=== PATIENT | male | born 1950 | race Caucasian/White ===

== ENCOUNTER 2016-06-22 21:48 | Observation (INO) ==
[2016-06-22] MEDS ORDERED: 0.9 % Sodium Chloride 500 ML IVC ONE (23:52)
[2016-06-22] MEDS ORDERED: Ipratropium/Albuterol Neb 3 ML IH ONE (23:52)
[2016-06-23 00:45] LABS: Basophils # 0.1 K/mcL (0.0-0.2); Basophils % 0.6 %; Eosinophils # 0.2 K/mcL (0.0-0.6); Eosinophils % 2.5 %; Hematocrit 38.2 % (37.5-50.1); Hemoglobin 12.9 g/dL (12.9-16.9); Immature Granulocytes % 0.5 % (0-4); Immature Platelets 6.1 % (1.1-6.1); Lymphocytes # 2.3 K/mcL (0.6-4.6); Lymphocytes % 27.3 %; Mean Corpuscular HGB Conc 33.8 g/dL (31.6-35.5); Mean Corpuscular Hemoglobin 32.2 pg (28.0-33.3); Mean Corpuscular Volume 95.3 fL (83.0-100.0); Mean Platelet Volume 10.8 fL (9.4-12.4); Monocytes # 1.2 K/mcL (0.0-1.3); Monocytes % 13.8 %; Neutrophils # 4.7 K/mcL (1.6-8.9); Platelet Count 224 K/mcL (140-400); Red Blood Count 4.01 M/mcL (4.19-5.50); Red Cell Distribution Width 12.4 % (11.5-14.5); Segmented Neutrophils % 55.3 %
[2016-06-23 00:56] LABS: BUN/Creatinine Ratio 13 (6-26); Blood Urea Nitrogen 13 mg/dL (8-26); Calcium 9.4 mg/dL (8.6-10.8); Carbon Dioxide 27 mEq/L (19-29); Chloride 99 mEq/L (98-109); Glucose 170 mg/dL (70-99); Osmolality,Calculated 292 (280-300); Potassium 3.4 mEq/L (3.5-4.5); Sodium 139 mEq/L (136-145); eGFR For African Americans > 60 (> 60); eGFR For Non-African Americans > 60 (> 60)
[2016-06-23 00:57] LABS: INR 1.1; Prothrombin Time 11.5 Seconds (9.4-12.1)
[2016-06-23 01:00] LABS: Activated Partial Thrombo Time 25.7 Seconds (26.0-36.0)
--- NOTE | 2016-06-23 03:18 | Emergency Department Note ---
Disposition Clinical Impression: Dyspnea and respiratory abnormalities, Lactic acidosis Disposition: Admitted As Inpatient Condition: Fair Referrals: Fadi Alexander MD [Primary Care Provider] - Forms: ED Satisfaction Letter URI/Sore Throat HPI - General Chief Complaint: ED Upper Respiratory Infection Stated Complaint: SANDI / Cough Time Seen by Provider: 06/22/16 23:35 Source: patient Mode of arrival: private vehicle Limitations: no limitations Nursing Notes Reviewed: Yes Vital Signs Reviewed: Yes - History of Present Illness Pt Subjective Complaint: fever, cough, flu symptoms, nasal congestion, sinus pain Onset (ago): day(s) (1.5) Duration: constant, gradually worsening Severity: moderate Improves with: nothing Worsens with: exertion, other (coughing) If sputum, description: yellow Associated symptoms: Reports: fever, chills, voice changes, myalgias, nasal congestion, cough, shortness of breath. Denies: diaphoresis, headache, rhinorrhea, stiff neck, chest pain, abdominal pain, nausea, vomiting, diarrhea, dysuria, rash, ear pain Treatments prior to arrival: none - Related Data Home Medications Medication Instructions Recorded Confirmed Acyclovir [Zovirax] 400 mg PO BID PRN 05/30/15 06/29/15 Allopurinol [Zyloprim 100 MG] 100 mg PO DAILY 05/30/15 06/29/15 GlyBURIDE 10 mg PO BID 05/30/15 06/29/15 Indomethacin 50 mg PO BID 05/30/15 06/29/15 Lansoprazole [Prevacid] 30 mg PO BID 05/30/15 06/29/15 Metformin [Glucophage] 1,000 mg PO BID 05/30/15 06/29/15 Potassium Chloride [Klor-Con 10 meq PO BID 05/30/15 06/29/15 Sprinkle] Ramipril 10 mg PO BID 06/29/15 06/29/15 Previous Rx's Medication Instructions Recorded Aspirin 81 mg PO DAILY #30 tab.chew 06/01/15 Atorvastatin [Lipitor] 80 mg PO HS #30 tablet 06/01/15 Clopidogrel [Plavix] 75 mg PO DAILY #30 tablet 06/01/15 Lisinopril [Zestril] 10 mg PO DAILY #30 tablet 06/01/15 Metoprolol [Lopressor] 50 mg PO BID #60 tablet 06/01/15 Nitroglycerin 0.4 mg SL Q5MIN PRN #30 tab.subl 06/01/15 Allergies Allergy/AdvReac Type Severity Reaction Status Date / Time No Known Allergies Allergy Verified 06/22/16 22:09 All systems ED: reviewed and negative except as stated. Constitutional: Reports: fever, chills Eyes: Denies: eye pain, eye discharge, vision change ENT ED: Reports: congestion. Denies: dysphagia Cardiovascular: Reports: dyspnea on exertion. Denies: chest pain, palpitations , orthopnea, edema, syncope Respiratory: Reports: as per HPI, cough, dyspnea, sputum production. Denies: wheezes, hemoptysis, stridor Gastrointestinal: Denies: abdominal pain, nausea, vomiting, diarrhea Musculoskeletal: Denies: back pain, neck pain, joint swelling Integumentary: Denies: rash Neurological: Denies: headache, confusion, vertigo Endocrine: Reports: fatigue Hematological/Lymphatic: Denies: easy bleeding, easy bruising URI PMH - Past Medical History Medical history: Reports: coronary artery disease, diabetes, GERD, hyperlipidemia, hypertension, myocardial infarction Surgical history: Reports: herniorrhaphy, vasectomy Psychiatric history: Reports: no psych history - Social History Smoking Status: Former smoker Alcohol use: Reports: none Drug use: Reports: none Physical Exam - General Limitations: no limitations General appearance: alert, in no apparent distress - Head Head exam: atraumatic, normocephalic, normal inspection - Eye Eye exam: Present: normal appearance, PERRL. Absent: scleral icterus, conjunctival injection, periorbital swelling - ENT ENT exam: normal oropharynx, mucous membranes dry - Neck Neck exam: Present: normal inspection, full ROM, trachea midline. Absent: tenderness, meningismus, lymphadenopathy - Chest Chest inspection: Present: normal inspection, symmetric chest wall rise. Absent : tenderness - Respiratory Respiratory exam: Present: normal lung sounds bilaterally. Absent: respiratory distress, wheezes, stridor, accessory muscle use, prolonged expiratory phase - Cardiovascular Cardiovascular exam: Present: regular rate, normal rhythm, normal heart sounds - Abdominal Exam Abdominal exam: Present: soft, Non-Tender. Absent: tenderness, distention, guarding, rebound, rigidity, mass - Extremities Exam Extremities exam: Present: normal inspection, full ROM, normal capillary refill. Absent: tenderness, pedal edema, joint swelling, calf tenderness - Expanded Lower Extremity Exam Gait: observed and normal - Back Exam Back exam: Present: normal inspection, full ROM. Absent: tenderness - Neurological Exam Neurological exam: Present: alert, oriented X3, CN II-XII intact, normal gait - Psychiatric Psychiatric exam: Present: normal affect, normal mood - Skin Skin exam: Present: warm, dry, intact, normal color Course Vital Signs Temperature 99.2 F 06/22/16 22:05 Pulse Rate 94 06/22/16 22:05 Respiratory Rate 18 06/22/16 22:05 Blood Pressure 159/89 06/22/16 22:05 O2 Sat by Pulse Oximetry 94 L 06/22/16 22:05 Temperature 99.2 F 06/22/16 22:05 Pulse Rate 100 06/23/16 01:36 Respiratory Rate 16 06/23/16 01:36 Blood Pressure 126/74 06/23/16 01:36 O2 Sat by Pulse Oximetry 95 06/23/16 01:36 Oxygen Delivery Oxygen Delivery Room Air Upper Respiratory Infection - Medical Records Medical records reviewed: Yes I reviewed the patient's medical records. - Lab Data Lab results reviewed: Yes I reviewed the patient's lab results. Result diagrams: 06/23/16 00:31 06/23/16 00:31 Lab Results 06/23/16 06/23/16 06/23/16 Range/Units 00:31 00:31 00:31 WBC 8.5 (4.3-11.1) K/mcL RBC 4.01 L (4.19-5.50) M/mcL Hgb 12.9 (12.9-16.9) g/dL Hct 38.2 (37.5-50.1) % MCV 95.3 (83.0-100.0) fL MCH 32.2 (28.0-33.3) pg MCHC 33.8 (31.6-35.5) g/dL RDW 12.4 (11.5-14.5) % Plt Count 224 (140-400) K/mcL MPV 10.8 (9.4-12.4) fL Immature Gran % 0.5 (0-4) % Seg Neutrophils % 55.3 % Lymphocytes % 27.3 % Monocytes % 13.8 % Eosinophils % 2.5 % Basophils % 0.6 % Neutrophils # 4.7 (1.6-8.9) K/mcL Lymphocytes # 2.3 (0.6-4.6) K/mcL Monocytes # 1.2 (0.0-1.3) K/mcL Eosinophils # 0.2 (0.0-0.6) K/mcL Basophils # 0.1 (0.0-0.2) K/mcL Immature Plt Fraction 6.1 (1.1-6.1) % PT 11.5 (9.4-12.1) Seconds INR 1.1 APTT 25.7 L (26.0-36.0) Seconds Sodium 139 (136-145) mEq/L Potassium 3.4 L (3.5-4.5) mEq/L Chloride 99 (98-109) mEq/L Carbon Dioxide 27 (19-29) mEq/L BUN 13 (8-26) mg/dL Creatinine 0.98 (0.72-1.25) mg/dL Est GFR ( Amer) > 60 (> 60) Est GFR (Non-Af Amer) > 60 (> 60) BUN/Creatinine Ratio 13 (6-26) Glucose 170 H (70-99) mg/dL Calculated Osmolality 292 (280-300) Lactic Acid (0.5-2.2) mmol/L Calcium 9.4 (8.6-10.8) mg/dL Troponin I (0-0.03) ng/mL B-Natriuretic Peptide (0-100) pg/mL 06/23/16 06/23/16 06/23/16 Range/Units 00:31 00:31 00:31 WBC (4.3-11.1) K/mcL RBC (4.19-5.50) M/mcL Hgb (12.9-16.9) g/dL Hct (37.5-50.1) % MCV (83.0-100.0) fL MCH (28.0-33.3) pg MCHC (31.6-35.5) g/dL RDW (11.5-14.5) % Plt Count (140-400) K/mcL MPV (9.4-12.4) fL Immature Gran % (0-4) % Seg Neutrophils % % Lymphocytes % % Monocytes % % Eosinophils % % Basophils % % Neutrophils # (1.6-8.9) K/mcL Lymphocytes # (0.6-4.6) K/mcL Monocytes # (0.0-1.3) K/mcL Eosinophils # (0.0-0.6) K/mcL Basophils # (0.0-0.2) K/mcL Immature Plt Fraction (1.1-6.1) % PT (9.4-12.1) Seconds INR APTT (26.0-36.0) Seconds Sodium (136-145) mEq/L Potassium (3.5-4.5) mEq/L Chloride (98-109) mEq/L Carbon Dioxide (19-29) mEq/L BUN (8-26) mg/dL Creatinine (0.72-1.25) mg/dL Est GFR ( Amer) (> 60) Est GFR (Non-Af Amer) (> 60) BUN/Creatinine Ratio (6-26) Glucose (70-99) mg/dL Calculated Osmolality (280-300) Lactic Acid 3.0 H (0.5-2.2) mmol/L Calcium (8.6-10.8) mg/dL Troponin I 0.01 (0-0.03) ng/mL B-Natriuretic Peptide 52 (0-100) pg/mL - Radiology Data Radiology results reviewed: Yes I reviewed the patient's radiology results. - EKG Data EKG attestation: Yes I reviewed and interpreted this EKG. EKG shows normal: sinus rhythm Rate: normal Rhythm: NSR [place]/QRS: normal Interpretation: no acute changes, normal EKG
[2016-06-23] MEDS ORDERED: 0.9 % Sodium Chloride 1,700 ML IVC ONE (03:22)
[2016-06-23] MEDS ORDERED: Azithromycin 500 MG in D5% in Water 250 ML IVPB ONE (03:23)
--- NOTE | 2016-06-23 04:27 | Internal Med History&Physical ---
<JesseAj - Last Filed: 06/23/16 04:58> Date of Encounter: 06/23/16 Time of Encounter: 04:24 Assessment and Plan (1) Acute bronchitis Current visit: Yes Status: Acute Given patient's acute symptoms of fever, productive cough, and wheezing without obvious x-ray findings, he most likely has bronchitis CXR did show old granulomatous findings but no infiltrates visible Will start on PO Levaquin 750 mg daily and support with supplemental oxygen for now as he continues to feel short of breath Obtain UA and urinary strep/legionella antigens Qualifiers: Qualified Code(s): J20.9 - Acute bronchitis, unspecified (2) Lactic acidosis Current visit: Yes Status: Acute Etiology unclear, but cannot rule out type A in setting of possible hypovolemia given his cardiac history; also type B from Metformin use He did present with Lactic acid of 3.0, and received 2 L boluses in the ED; will continue maintenance IVF and recheck lactic acid levels (3) CAD (coronary artery disease) Current visit: Yes Status: Chronic Stable, no current chest pain at this time Will continue ASA, plavix, BB, statin and PRN Nitro Obtain echocardiogram given shortness of breath and no previous echo in the EMR Qualifiers: Qualified Code(s): I25.10 - Atherosclerotic heart disease of [place] coronary artery without angina pectoris (4) HTN (hypertension) Current visit: No Status: Chronic Blood pressures stable since admission Will continue home Lisinopril and Metoprolol Qualifiers: Hypertension type: essential hypertension Qualified Code(s): I10 - Essential (primary) hypertension (5) Non-insulin dependent type 2 diabetes mellitus Current visit: Yes Status: Chronic Presented with glucose of 170 Will stop home Metformin and Glyburide Start on low dose SSI ACHS accuchecks (6) DVT prophylaxis Current visit: Yes Status: Acute Heparin 5000 units BID Internal Medicine - H&P: HPI Chief complaint: Shortness of breath Admitted From: Home Plans for Post Hospital Care: Home History of present illness: Mr. Brar is a 65 year old male who presents to emergency department with shortness of breath has been progressive over the past 2 or 3 days. He states that he was severely short of breath yesterday decided come to the emergency department. Patient claims to get short of breath even at rest and nothing he has tried has improved his symptoms. He also describes having a oroductive cough with brown sputum during this time and also had a fever of 101.4 prior to coming. He believes that he has had some viral infection over the past several days. Of note, he does have a history of STEMI last year and had a drug eluting stent placed in his left circumflex. He is currently on aspirin and Plavix. He does admit to intermittent chest pain occurs once every week or 2, but is relieved by nitroglycerin. He denies any history of lung problems and claims to have had a pulmonary function test roughly a year ago which was negative. He does have an inhaler for bronchitis but rarely uses it, and does not have any oxygen at home. Past Med Surg Social Fam HX - Past Medical History Medical history: coronary artery disease, diabetes, GERD, hyperlipidemia, hypertension, myocardial infarction Psychiatric history: no psych history - Past Surgical History Surgical History: herniorrhaphy, vasectomy - Social History Smoking Status: Former smoker Smokeless Tobacco Status: No Alcohol use: none Drug use: none - Family History Father Family Member Ethnicity: Non- Living Status: Hx Family Cardiac Disorders: Yes Hx Family Respiratory Disorders: No Hx Family Cancer: No Hx Family GI Disorders: No Hx Family Endocrine Disorder: Yes Hx Family Neuromuscular Disorders: No Hx Family Neurologic Disorders: No Hx Family HEENT Disorders: No Hx Family Autoimmune Disorders: Yes Internal Medicine - H&P: Meds Acyclovir [Zovirax] 400 mg PO BID PRN 05/30/15 [History] Allopurinol [Zyloprim 100 MG] 100 mg PO DAILY 05/30/15 [History] GlyBURIDE 10 mg PO BID 05/30/15 [History] Indomethacin 50 mg PO BID 05/30/15 [History] Lansoprazole [Prevacid] 30 mg PO BID 05/30/15 [History] Metformin [Glucophage] 1,000 mg PO BID 05/30/15 [History] Potassium Chloride [Klor-Con Sprinkle] 10 meq PO BID 05/30/15 [History] Aspirin 81 mg PO DAILY #30 tab.chew 06/01/15 [Rx] Atorvastatin [Lipitor] 80 mg PO HS #30 tablet 06/01/15 [Rx] Clopidogrel [Plavix] 75 mg PO DAILY #30 tablet 06/01/15 [Rx] Lisinopril [Zestril] 10 mg PO DAILY #30 tablet 06/01/15 [Rx] Metoprolol [Lopressor] 50 mg PO BID #60 tablet 06/01/15 [Rx] Nitroglycerin 0.4 mg SL Q5MIN PRN #30 tab.subl 06/01/15 [Rx] Ramipril 10 mg PO BID 06/29/15 [History] Allergies No Known Allergies Allergy (Verified 06/22/16 22:09) All Systems PM: A 10-system review of systems was performed and is negative for pertinent findings except as documented above in the HPI. - Constitutional Constitutional: fever(s), no chills, no night sweats - EENT Eyes: no change in vision, no discharge, no pain, no photophobia Ears: no ear discharge, no ear pain, no tinnitus Nose, mouth and throat: hoarseness, no dysphagia, no nasal discharge, no neck pain, no sore throat - Cardiovascular Cardiovascular ROS IM: chest pain, dyspnea, no diaphoresis, no lightheadedness, no palpitations, no syncope - Respiratory Respiratory: cough, change in phlegm color, no dyspnea, no wheezing, no excessive phlegm production - Gastrointestinal Gastrointestinal: no abdominal pain, no diarrhea, no hematemesis, no hematochezia, no melena, no nausea, no vomiting - Musculoskeletal Musculoskeletal ROS IM: numbness, tingling - Integumentary Integumentary IM: no rash, no unusual bruising - Neurological Neurological ROS: no confusion, no convulsions, no focal weakness, no numbness, no tingling, no tremor(s) - Hematologic/Lymphatic Hematologic/Lymphatic: no easy bruising - Constitutional Vitals: Temp Pulse Resp BP Pulse Ox 99.7 F H 87 16 134/79 94 L 06/23/16 04:08 06/23/16 04:08 06/23/16 04:08 06/23/16 04:08 06/23/16 04:08 General appearance: Present: cooperative, pleasant, no acute distress, answers questions appropriately - Head Head exam: Present: atraumatic, normocephalic - Eye Eye exam: Present: PERRL, conjuntiva pink, sclera anicteric - Neck Neck exam general surgery: Present: supple, trachea midline. Absent: lymphadenopathy - Respiratory Respiratory exam: Present: wheezes. Absent: accessory muscle use, rales, rhonchi - Cardiovascular Cardiovascular exam: Present: RRR, +S1, +S2. Absent: diastolic murmur, gallop, rubs, systolic murmur - GI/Abdominal GI/Abdominal exam: Present: normal bowel sounds, soft, no peritoneal signs. Absent: distended, tenderness - Extremities Exam Extremities exam: Present: warm, radial pulses palpable and symetrical. Absent : calf tenderness, cyanotic, pedal edema - Neurological Exam Neurological exam: Present: alert, no focal deficits. Absent: facial droop, speech deficit - Skin Skin exam: Present: dry, intact Internal Med - H&P Results - Labs CBC & Chem 7: 06/23/16 00:31 06/23/16 00:31 - Impressions ITS Impressions Chest X-Ray 06/23/16 23:53 IMPRESSION: No acute disease. D/ / Brannon Banks MD / Brannon Banks MD Interpreting Provider: Brannon Banks MD <Prashant Dickens - Last Filed: 06/23/16 06:27> Date of Encounter: 06/23/16 Internal Medicine - H&P: HPI History of present illness: Mr. Brar is a 65 year old male All Systems PM: A 10-system review of systems was performed and is negative for pertinent findings except as documented above in the HPI. - Constitutional Vitals: Temp Pulse Resp BP Pulse Ox 98.2 F 82 12 135/77 98 06/23/16 06:17 06/23/16 06:17 06/23/16 06:17 06/23/16 06:17 06/23/16 06:17 Internal Med - H&P Results - Labs CBC & Chem 7: 06/23/16 00:31 06/23/16 00:31 Labs: Cardiac Enzymes 06/23/16 Range/Units 05:38 Troponin I 0.01 (0-0.03) ng/mL - Impressions ITS Impressions Chest X-Ray 06/23/16 23:53 IMPRESSION: No acute disease. D/ / Brannon Banks MD / Brannon Banks MD Interpreting Provider: Brannon Banks MD - Attending Attestation I performed a history and physical examination of the patient and discussed his management with the Resident/Pipe Puller (Dr Molina). I reviewed the residents note and agree with the documented findings and plan of care, with additions as below. 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 PMH of DM, CAD s/p stent placement. He reports intermittent shortness of when he has prolongd preaching, but no shortness of breath on treadmill for 20 minutes at fast pace. He presents with shortness of breath for 2 days, cough with yellow expectoration and fever with temp 101F. He was evaluated in the emergency department. Chest x-ray was reportedly negative for infiltrate. His lactate was elevated at 3. He apparently karan O/E: Bilateral basal crackles heard. Cardiac: regular rate and rhythm. CXR: Personally reviewed by me shows calcified lymph nodes. Left diaphragmatic shadow is fuzzy. No leukocytosis. Influenza screen is negative. A/P: - Lactic acidosis: Possibly due to infection with respiratory source. Bronchitis versus pneumonia not seen on CXR. Start levofloxacin. Pt received IV fluids in the ER. Repeat lactate levels. Pt has b/l basal crackles. BNP is normal. I am concerned that he may have interstitial lung disease (pt has calcified nodes in the mediastinum). Will obtain CT scan of the chest w/o contrast, to exclude interstitial lung disease versus pneumonia. May need to check his resting and walking pulse ox prior to discharge.
[2016-06-23] MEDS ORDERED: *HR* Dextrose 50 % in Water (Syg) 50 ML SYRINGE IVP PRN (04:49)
[2016-06-23] MEDS ORDERED: Acetaminophen 325 MG TABLET PO PRN (04:49)
[2016-06-23] MEDS ORDERED: Dextrose Gel 15 GM PO PRN ×2 (04:49)
[2016-06-23] MEDS ORDERED: D5% in Water 1,000 ML IV PRN (04:49)
[2016-06-23] MEDS ORDERED: Naloxone 0.4 MG/ML INJ IVP PRN (04:49)
[2016-06-23] MEDS ORDERED: Ondansetron ODT 4 MG TAB.RAPDIS SL PRN (04:49)
[2016-06-23] MEDS ORDERED: Nitroglycerin 0.4 MG TAB.SUBL SL PRN (04:54)
[2016-06-23] MEDS ORDERED: 0.9 % Sodium Chloride 1,000 ML IVC SCH (05:00)
[2016-06-23] MEDS: *HR* Heparin 5,000 UNIT/ML VIAL SQ SCH ×2 (06:05→18:18)
[2016-06-23 06:10] LABS: Magnesium 0.8 mg/dL (1.6-2.6); Phosphorous 3.3 mg/dL (2.3-4.7)
[2016-06-23] MEDS ORDERED: Ipratropium/Albuterol Neb 3 ML ONE (07:44)
[2016-06-23] MEDS ORDERED: levoFLOXacin 750 MG TABLET PO SCH ×2 (09:00→22:00)
[2016-06-23] MEDS: Insulin LISPRO 300 UNITS/3 ML VIAL SQ SCH ×3 (09:02→17:07)
[2016-06-23] MEDS: Aspirin 81 MG TAB.CHEW PO SCH (09:03)
[2016-06-23] MEDS ORDERED: Ipratropium/Albuterol Neb 3 ML IH SCH (10:00)
--- NOTE | 2016-06-23 10:32 | Event Note ---
Date of Encounter: 06/23/16 Time of Encounter: 09:00 Patient seen and examined. On examination, patient sitting upright in bed conversing with his . Patient stating he continues to be more short of breath than usual. He is also complaining of a sore throat and chest pain with coughing. Chest x-ray negative. Chest CT negative for acute processes. Right lower lobe chronic opacities noted, recommend follow-up scan in 1 year. Continue levofloxacin. Preliminary flu swabs negative, viral panel pending. Elevated lactic acid noted, will recheck at noon. Vital signs are stable. No leukocytosis. No signs of sepsis. Hypomagnesemia noted with hypokalemia, will replete and trend. Patient currently tolerating room air. On examination, fair aeration with diffuse expiratory wheezing present throughout. Patient has not smoked in over 40 years. Will trend potassium and magnesium as well as respiratory status. Possible discharge tomorrow pending clinical outcomes. ITS Impressions Chest CT 06/23/16 07:30 IMPRESSION: 1. No interstitial lung disease. 2. No acute cardiopulmonary disease including pneumonia. 3. Slight interval increase in size of a pleural-based opacity in the right lower lobe measuring 19 x 11 mm, previously 17 x 7 mm in 2009. Repeat chest CT in 1 year is recommended. 4. Severe coronary artery atherosclerosis. 5. Evidence of prior granulomatous disease. 6. Moderate hiatal hernia. D/ / 06/23/2016 08:42:58 Camila Gómez MD / [facility] Interpreting Provider: Camila Gómez MD Chest X-Ray 06/23/16 23:53 IMPRESSION: No acute disease. D/ / Brannon Banks MD / Brannon Banks MD Interpreting Provider: Brannon Banks MD
[2016-06-23] MEDS ORDERED: Benzonatate 100 MG CAPSULE PO PRN (12:48)
[2016-06-23] MEDS ORDERED: *HR* HYDROcodone/Acet 5/325 mg TABLET PO PRN (12:48)
[2016-06-23] MEDS ORDERED: *HR* Morphine 2 MG/ML SYRINGE IVP PRN (12:48)
[2016-06-23] MEDS ORDERED: Acyclovir 200 MG CAPSULE PO PRN (12:50)
[2016-06-23] MEDS ORDERED: RAMIPRIL 10 MG PO SCH (13:00)
[2016-06-23] MEDS: predniSONE 20 MG TABLET PO SCH (13:22)
[2016-06-23] MEDS: hydroCHLOROthiazide 25 MG TABLET PO SCH (13:22)
[2016-06-23] MEDS ORDERED: Gabapentin 400 MG CAPSULE PO ONE (13:37)
[2016-06-23] MEDS: Magnesium Sulfate 1 GM in D5% in Water 100 ML IVPB SCH ×4 (14:49→21:48)
[2016-06-23 15:10] LABS: Bilirubin,Urine Negative (Negative); Blood,Urine Negative (Negative); Clarity,Urine Clear (Clear); Color,Urine Yellow (Yellow); Glucose,Urine (UA) Normal (Normal); Ketones,Urine Negative (Negative); Leukocyte Esterase,Urine Negative (Negative); Nitrite,Urine Negative (Negative); Protein,Urine Negative (Neg-Trace); Specific Gravity,Urine 1.012 (1.010-1.025); Urobilinogen,Urine Normal (Normal)
[2016-06-23] MEDS: Ipratropium/Albuterol Neb 3 ML IH SCH ×2 (15:43→20:29)
--- NOTE | 2016-06-23 17:14 | Electrocardiograph Report ---
[address] [address] Test Date: 2016-06-22 Pat Name: Dwayne Brar Department: 102 Room: 3B Gender: M [employer]: : 1950 Requested By: Christa Truong Order Number: [id number] Reading MD: Adrianne Petty Measurements Intervals [place] Rate: 89 P: 72 DE: 156 QRS: 15 QRSD: 96 T: 11 QT: 348 QTc: 395 Interpretive Statements SINUS RHYTHM Electronically Signed On 06-23-2016 17:12:48 EST by Adrianne Petty
[2016-06-23] MEDS ORDERED: Gabapentin 400 MG CAPSULE PO SCH (21:00)
[2016-06-23] MEDS ORDERED: Insulin LISPRO 300 UNITS/3 ML VIAL SQ SCH (21:00)
[2016-06-23] MEDS ORDERED: Famotidine 20 MG TABLET PO SCH (21:00)
[2016-06-24] MEDS: Ipratropium/Albuterol Neb 3 ML IH SCH ×3 (00:11→07:54)
[2016-06-24 04:57] LABS: BUN/Creatinine Ratio 16 (6-26); Blood Urea Nitrogen 14 mg/dL (8-26); Calcium 9.1 mg/dL (8.6-10.8); Carbon Dioxide 22 mEq/L (19-29); Chloride 105 mEq/L (98-109); Glucose 229 mg/dL (70-99); Magnesium 1.7 mg/dL (1.6-2.6); Osmolality,Calculated 292 (280-300); Potassium 4.4 mEq/L (3.5-4.5); Sodium 137 mEq/L (136-145); eGFR For African Americans > 60 (> 60); eGFR For Non-African Americans > 60 (> 60)
[2016-06-24 06:35] VITALS: BP 112/71
[2016-06-24] MEDS: *HR* Heparin 5,000 UNIT/ML VIAL SQ SCH (06:47)
[2016-06-24] MEDS: Insulin LISPRO 300 UNITS/3 ML VIAL SQ SCH (07:48)
[2016-06-24] MEDS: Aspirin 81 MG TAB.CHEW PO SCH (07:50)
[2016-06-24] MEDS: hydroCHLOROthiazide 25 MG TABLET PO SCH (07:50)
[2016-06-24] MEDS: predniSONE 20 MG TABLET PO SCH (07:50)
[2016-06-24] MEDS ORDERED: Magnesium Oxide 400 MG TABLET PO SCH (09:00)
--- NOTE | 2016-06-24 09:52 | ECHO - Doppler Report ---
Echocardiogram Name: Dwayne Brar Date of Study: 06/23/2016 Date: 1950 Ht: 71.0 in Medical Record#: [id number] Age: 65 Wt: 207.0 lb Gender: Male BSA: 2.14 Order #: [id number] Location: [facility] Room #: 3B36 Reading Physician: Catracho Srinivasan MD, [facility] Environmental Compliance Specialist: Evangelina Patel Ordering Physician: Aj Molina DO Primary Physician: Fadi Alexander M.D. Indications: Shortness of breath Impressions: LVEF 65-70%. Mild concentric left ventricular hypertrophy. Mild left ventricular diastolic dysfunction. No pulmonary hypertension. No significant valvular dysfunction. Left Ventricular Wall Motion: Rest Echo Findings All wall segments showed normal motion. Findings: Study Quality * Technically adequate exam. Right Ventricle * Normal right ventricular structure and function. Right Atrium * Normal right atrial size. Aortic Valve * Trileaflet aortic valve with normal function. Mitral Valve * Normal mitral valve structure and function. Interatrial Septum * No evidence of PFO by color Doppler. Aorta * Normally sized aortic root. Pericardium * The pericardium appears normal. Left Ventricle * LVEF 65-70%. * Mild concentric left ventricular hypertrophy. * Mild left ventricular diastolic dysfunction. Left Atrium * Mildly dilated left atrium. Tricuspid Valve * Estimated RVSP is 35 mmHg. * Estimated RA pressure is 3-5 mmHg. * No pulmonary hypertension. * No tricuspid stenosis. * Mild tricuspid regurgitation. ECG Findings * Normal sinus rhythm. History Hypertension Diabetes Hypercholesteremia Years 10 Packs 0.5 Family History of CAD History of CAD/PTCA Myocardial Infarction 05/31/2015 a Previous Echo was performed. Measurements: BP: 106/ 67 2D Normal Values RVIDd: 3.30 cm <2.7 cm IVSd: 1.70 cm 0.6 - 1.0 cm LVIDd: 3.60 cm 3.7 - 5.6 cm LVPWd: 1.20 cm 0.6 - 1.1 cm LVIDs: 2.10 cm 1.5 - 3.6 cm AO: 3.20 cm < 4.0 cm LA: 4.30 cm 2.0 - 4.0cm %FS: 41.70 cm >25 % LA volume: 66 Mitral Valve Peak E:.92 m/sec Peak A:.64 m/sec E/A Ratio:1.4 Peak E' Lat [place]:11 cm/s Peak E' Med [place]:6.43 cm/s E/E' Lat Ratio:8.4 E/E' Med Ratio:14.3 Tricuspid Valve TV Regurg Peak Grad: 35.00mmHg TV Regurg Peak [place]: 2.95m/sec Updated by Catracho Srinivasan MD, [facility] on 06/24/2016 9:45:36 AM electronically signed on 06/24/2016 9:47:02 AM with status of Final Wall Motion [place]: 1=Normal, 2=Hypokinesis, 3=Akinesis, 4=Dyskinesis, 5=Aneurysmal, 6=Hyperkinetic, X=Not Visualized (Blank)=Missing
--- NOTE | 2016-06-24 10:40 | Discharge Summary ---
Date of Encounter: 06/25/16 Time of Encounter: 10:38 - Discharge Diagnosis (1) CAD (coronary artery disease) Priority: Secondary Status: Chronic Qualifiers: Coronary Disease-Associated Artery/Lesion type: [place] artery [place] vs. 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 Qualified Code(s): E11.8 - Type 2 diabetes mellitus with unspecified complications (3) Hyperlipidemia Priority: Secondary Status: Chronic Qualifiers: Hyperlipidemia type: unspecified Qualified Code(s): E78.5 - Hyperlipidemia , unspecified - Discharge Medications Prescriptions: GuaiFENesin ER [Mucinex] 600 mg PO BID 7 Days Levofloxacin 750 mg PO DAILY #3 tablet Home Medications: Acyclovir [Zovirax] 400 mg PO BID PRN 05/30/15 [History] Allopurinol [Zyloprim 100 MG] 100 mg PO DAILY 05/30/15 [History] GlyBURIDE 5 mg PO BID 05/30/15 [History] Indomethacin 50 mg PO PRN PRN 05/30/15 [History] Lansoprazole [Prevacid] 30 mg PO BID 05/30/15 [History] Metformin [Glucophage] 1,000 mg PO BID 05/30/15 [History] Potassium Chloride [Klor-Con Sprinkle] 20 meq PO BID 05/30/15 [History] Aspirin 81 mg PO DAILY #30 tab.chew 06/01/15 [Rx] Atorvastatin [Lipitor] 80 mg PO HS #30 tablet 06/01/15 [Rx] Clopidogrel [Plavix] 75 mg PO DAILY #30 tablet 06/01/15 [Rx] Metoprolol [Lopressor] 50 mg PO BID #60 tablet 06/01/15 [Rx] Nitroglycerin 0.4 mg SL Q5MIN PRN #30 tab.subl 06/01/15 [Rx] Ramipril [Altace] 10 mg PO BID 06/29/15 [History] Albuterol Sulfate [Proair Hfa] 2 puff IH Q6H PRN 06/23/16 [History] Cholecalciferol (D-3) [Vitamin D] 2,000 unit PO DAILY 06/23/16 [History] Gabapentin [Neurontin] 400 mg PO HS 06/23/16 [History] Hydrochlorothiazide 25 mg PO DAILY 06/23/16 [History] Krill/Om-3/Dha/Epa/Phospho/Ast [Krill Oil 1,000 mg Softgel] 1,000 mg PO DAILY [History] Multivit-Min/FA/Lycopen/Lutein [Centrum Silver Men Tablet] 1 tab PO DAILY [History] Ranitidine HCl [Zantac] 300 mg PO HS 06/23/16 [History] SitaGLIPtin [Januvia] 100 mg PO DAILY 06/23/16 [History] GuaiFENesin ER [Mucinex] 600 mg PO BID 7 Days 06/24/16 [Rx] Levofloxacin 750 mg PO DAILY #3 tablet 06/24/16 [Rx] Allergies/Adverse Reactions: Allergies No Known Allergies Allergy (Verified 06/22/16 22:09) Procedures/tests Complete & Pending: Procedures Performed prior 72 hours Category Date Time Status CT chest wo con [CT] Routine Cat Scan 06/23/16 07:30 Completed EV echocardiogram Routine Y 06/23/16 04:52 Completed Date of admission: 06/23/16 03:50 Primary care physician: Fadi Alexander MD Discharging clinician: Yahaira Best Anticipated date of discharge: 06/24/16 - Patient Status Disposition: Home, Self-Care Condition: Fair Functional capacity at discharge: independent ambulation Overall status at discharge: patient is back to baseline - Discharge Instructions Instructions: Diabetes Mellitus Type 2 in Adults (DC), Acute Bronchitis (DC), Dyspnea (GEN) Follow Up With: Fadi Alexander MD [Primary Care Provider] - 06/29/16 3:15 pm Additional Instructions: Follow-up appointments: If there is not an appointment listed below, please call your physician and schedule a follow-up appointment. If you have congestive heart failure and your symptoms return, make an appointment with your physician. Symptoms: If your condition changes or you experience any of the following symptoms, notify your physician immediately: Unusual or worsening pain, fever, persistent nausea and vomiting, bleeding, increase in swelling (especially in your legs), sudden weight gain, extreme dizziness, chest pain, increased drainage or redness from a wound or incision. Go to the emergency department if you experience a problem with breathing. Weights: If you have a history of swelling or shortness of breath, weigh yourself daily and notify your physician if you have a weight gain of two or more pounds in one day or 5 or more pounds in a week. If you experience any of the warning signs for stroke: Sudden numbness or weakness of the face, arm or leg; especially on one side of the body, sudden confusion, trouble speaking or understanding, sudden trouble seeing in one or both eyes, sudden trouble walking, dizziness, loss of balance or coordination, sudden sever headache with no cause; Call 911 or go to the emergency room. Stroke is a medical emergency. Some risk factors for stroke: Age, cigarette smoking, diabetes, excessive alcohol consumption, family history , high blood pressure, overweight, physical inactivity, prior stroke, heart attack, diagnosis of carotid artery stenosis or other artery disease. If you smoke, STOP: Smoking or tobacco use significantly increases your risk of heart and lung disease. Your chance of disease greatly increases if you continue to smoke. For more information, call the [employer] quit line for smoking cessation QUIT-NOW ( ) - Diet and Activity Activity: resume usual activities as tolerated Diet: advance to your usual diet Interval History: Mr. Brar is a 65 year old male who presents to emergency department with shortness of breath has been progressive over the past 2 or 3 days. He states that he was severely short of breath yesterday decided come to the emergency department. Patient claims to get short of breath even at rest and nothing he has tried has improved his symptoms. He also describes having a oroductive cough with brown sputum during this time and also had a fever of 101.4 prior to coming. He believes that he has had some viral infection over the past several days. Of note, he does have a history of STEMI last year and had a drug eluting stent placed in his left circumflex. He is currently on aspirin and Plavix. He denies any history of lung problems and claims to have had a pulmonary function test roughly a year ago which was negative. He does have an inhaler for bronchitis but rarely uses it, and does not have any oxygen at home.Chest x- ray negative. Chest CT negative for acute processes. Right lower lobe chronic opacities noted, recommend follow-up scan in 1 year. Vital signs are stable. No leukocytosis. No signs of sepsis. he was started on levoflox with which he improved. he is being dc on oral levoflox in stable condition. Hospital course: Mr. Brar is a 65 year old male Time spent discussing smoking cessation with patient: more than 10 minutes - Time Spent with Patient Total time spent providing and/or coordinating discharge services: Greater than 30 minutes - Constitutional Vitals: Temp Pulse Resp BP Pulse Ox 97.8 F 75 20 112/71 97 06/24/16 06:34 06/24/16 06:34 06/24/16 07:55 06/24/16 06:34 06/24/16 07:55 General appearance: Present: cooperative, pleasant, no acute distress, answers questions appropriately Exam: - Head Head exam: Present: atraumatic, normocephalic - Eye Eye exam: Present: PERRL, conjuntiva pink, sclera anicteric - Neck Neck exam general surgery: Present: supple, trachea midline. Absent: lymphadenopathy - Respiratory Respiratory exam: Present: wheezes. Absent: accessory muscle use, rales, rhonchi - Cardiovascular Cardiovascular exam: Present: RRR, +S1, +S2. Absent: diastolic murmur, gallop, rubs, systolic murmur - GI/Abdominal GI/Abdominal exam: Present: normal bowel sounds, soft, no peritoneal signs. Absent: distended, tenderness - Extremities Exam Extremities exam: Present: warm, radial pulses palpable and symetrical. Absent : calf tenderness, cyanotic, pedal edema - Neurological Exam Neurological exam: Present: alert, no focal deficits. Absent: facial droop, speech deficit - Skin Skin exam: Present: dry, intact
[2016-06-27 01:50] LABS: Influenza A PCR Body Fluid DETECTED
[2016-06-27 05:10] LABS: Acinetobacter baumannii by PCR Not Detected (Not Detect); Enterococcus by PCR Not Detected (Not Detect); Staphylococcus aureus by PCR Not Detected (Not Detect); Streptococcus agalactiae(B)PCR Not Detected (Not Detect); Streptococcus by PCR Not Detected (Not Detect); Streptococcus pneumoniae PCR Not Detected (Not Detect); Streptococcus pyogenes (A) PCR Not Detected (Not Detect)
[2016-06-27 05:11] LABS: Candida albicans by PCR Not Detected (Not Detect); Candida glabrata by PCR Not Detected (Not Detect); Candida krusei by PCR Not Detected (Not Detect); Candida parapsilosis by PCR Not Detected (Not Detect); Candida tropicalis by PCR Not Detected (Not Detect); Escherichia coli by PCR Not Detected (Not Detect); Klebsiella oxytoca by PCR Not Detected (Not Detect); Klebsiella pneumoniae by PCR Not Detected (Not Detect); Pseudomonas aeruginosa by PCR Not Detected (Not Detect); Serratia marcescens by PCR Not Detected (Not Detect)
[2016-06-27 07:14] LABS: Influenza B PCR Body Fluid NOT DETECTED; RSV PCR Body Fluid NOT DETECTED
== END 2016-06-24 11:15 | disposition home or self-care (01) ==
LOC: 3BNU 21:48 → EMEROO 21:48 → 3BNU 06-23 04:53
PROVIDERS: ADMIT Nurse Practitioner Family; ATTEND Nurse Practitioner Family

== ENCOUNTER 2019-04-15 01:38 | Inpatient (IN) ==
[2019-04-15] MEDS ORDERED: Aspirin 325 MG TABLET PO ONE (01:48)
[2019-04-15 02:04] LABS: Basophils # 0.1 K/mcL (0.0-0.2); Basophils % 0.6 %; Eosinophils # 0.3 K/mcL (0.0-0.6); Eosinophils % 2.6 %; Hematocrit 36.1 % (37.5-50.1); Hemoglobin 12.6 g/dL (12.9-16.9); Immature Granulocytes % 0.3 % (0-4); Lymphocytes # 3.6 K/mcL (0.6-4.6); Lymphocytes % 37.7 %; Mean Corpuscular HGB Conc 34.9 g/dL (31.6-35.5); Mean Corpuscular Hemoglobin 32.8 pg (28.0-33.3); Monocytes % 10.2 %; Neutrophils # 4.7 K/mcL (1.6-8.9); Platelet Count 248 K/mcL (140-400); Red Blood Count 3.84 M/mcL (4.19-5.50); Segmented Neutrophils % 48.6 %; White Blood Count 9.6 K/mcL (4.3-11.1)
[2019-04-15 02:25] LABS: BUN/Creatinine Ratio 19 (6-26); Blood Urea Nitrogen 23 mg/dL (8-23); Calcium 9.3 mg/dL (8.6-10.3); Carbon Dioxide 26 mEq/L (23-29); Chloride 104 mEq/L (98-107); Glucose 98 mg/dL (70-105); Osmolality,Calculated 296 (280-300); Potassium 4.2 mEq/L (3.5-5.1); Sodium 141 mEq/L (136-145); eGFR For African Americans > 60 (> 60); eGFR For Non-African Americans 59 (> 60)
[2019-04-15 02:26] LABS: Troponin I < 0.03 ng/mL (< 0.04)
[2019-04-15] MEDS ORDERED: Naloxone 0.4 MG/ML INJ IVP PRN (05:35)
[2019-04-15] MEDS ORDERED: *HR* Dextrose 50 % in Water (Syg) 50 ML SYRINGE IVP PRN (05:41)
[2019-04-15] MEDS ORDERED: Dextrose Gel 15 GM/37.5 ML TUBE PO PRN ×2 (05:41)
[2019-04-15] MEDS ORDERED: D5% in Water 1,000 ML IVC PRN (05:41)
[2019-04-15] MEDS: Insulin LISPRO 300 UNITS/3 ML VIAL SQ SCH ×4 (06:32→21:11)
[2019-04-15] MEDS: Aspirin 81 MG TAB.CHEW PO SCH (14:44)
[2019-04-15] MEDS: Acetaminophen 325 MG TABLET PO PRN (14:44)
[2019-04-15] MEDS ORDERED: Heparin 1,000 UNITS/500 mL 500 ML ONE (17:40)
[2019-04-15] MEDS ORDERED: Nitroglycerin 1,000 MCG/10 ML VIAL IV ONE (17:40)
[2019-04-15] MEDS ORDERED: 0.9 % Sodium Chloride 2,000 ML ONE (17:40)
[2019-04-15] MEDS ORDERED: *HR* Heparin 10,000 UNIT/10 ML VIAL ONE (17:40)
[2019-04-15] MEDS ORDERED: ISOVUE-370 200 ML INFUS..BTL ONE (17:40)
[2019-04-16 05:51] LABS: Basophils % 0.4 %; Eosinophils # 0.2 K/mcL (0.0-0.6); Eosinophils % 2.3 %; Hematocrit 37.7 % (37.5-50.1); Hemoglobin 13.1 g/dL (12.9-16.9); Immature Granulocytes % 0.4 % (0-4); Lymphocytes # 2.8 K/mcL (0.6-4.6); Lymphocytes % 37.5 %; Mean Corpuscular HGB Conc 34.7 g/dL (31.6-35.5); Mean Corpuscular Hemoglobin 32.7 pg (28.0-33.3); Mean Platelet Volume 10.2 fL (9.4-12.4); Monocytes # 0.8 K/mcL (0.0-1.3); Monocytes % 10.2 %; Neutrophils # 3.6 K/mcL (1.6-8.9); Platelet Count 258 K/mcL (140-400); Red Blood Count 4.01 M/mcL (4.19-5.50); Red Cell Distribution Width 13.1 % (11.5-14.5); Segmented Neutrophils % 49.2 %; White Blood Count 7.4 K/mcL (4.3-11.1)
[2019-04-16 06:11] LABS: BUN/Creatinine Ratio 16 (6-26); Blood Urea Nitrogen 16 mg/dL (8-23); Calcium 9.6 mg/dL (8.6-10.3); Carbon Dioxide 26 mEq/L (23-29); Chloride 103 mEq/L (98-107); Glucose 164 mg/dL (70-105); Osmolality,Calculated 297 (280-300); Potassium 4.3 mEq/L (3.5-5.1); Sodium 141 mEq/L (136-145); eGFR For African Americans > 60 (> 60); eGFR For Non-African Americans > 60 (> 60)
[2019-04-16] MEDS: Insulin LISPRO 300 UNITS/3 ML VIAL SQ SCH ×4 (08:59→20:20)
[2019-04-16] MEDS: Aspirin 81 MG TAB.CHEW PO SCH (09:19)
[2019-04-16] MEDS: Isosorbide MONOnitrate (24 HR) 30 MG TAB.ER.24H PO SCH (09:19)
[2019-04-16] MEDS ORDERED: *HR* Heparin 5,000 UNIT/ML VIAL IVP ONE (09:58)
[2019-04-16] MEDS ORDERED: *HR* Heparin 5,000 UNIT/ML VIAL IVP PRN (09:58)
[2019-04-16 10:30] LABS: Hematocrit 38.2 % (37.5-50.1); Hemoglobin 12.8 g/dL (12.9-16.9); Mean Corpuscular HGB Conc 33.5 g/dL (31.6-35.5); Mean Corpuscular Hemoglobin 32.5 pg (28.0-33.3); Mean Platelet Volume 10.2 fL (9.4-12.4); Platelet Count 248 K/mcL (140-400); Red Blood Count 3.94 M/mcL (4.19-5.50); Red Cell Distribution Width 12.9 % (11.5-14.5); White Blood Count 7.9 K/mcL (4.3-11.1)
[2019-04-16 10:32] LABS: INR 1.1; Prothrombin Time 12.6 Seconds (9.4-12.1)
[2019-04-16 10:33] LABS: INR 1.1; Prothrombin Time 12.4 Seconds (9.4-12.1)
[2019-04-16 10:35] LABS: Activated Partial Thrombo Time 28.5 Seconds (26.0-36.0)
[2019-04-16] MEDS ORDERED: *HR* HYDROcodone/Acet 5/325 mg TABLET PO PRN (10:54)
[2019-04-16 10:59] LABS: Chol/HDL Ratio 4.7 (0-4.9)
[2019-04-16 11:15] LABS: Estimated Average Glucose 160 mg/dl
[2019-04-16] MEDS ORDERED: Perflutren Lipid Microsphere 1.3 ML in 0.9 % Sodium Chloride 8.7 ML IVP ONE (12:51)
[2019-04-16] MEDS: Heparin 25,000 UNIT/250 ML D5W 25,000 UNIT/250 ML IV.SOLN IVC SCH (14:21)
[2019-04-16] MEDS: Gabapentin 300 MG CAPSULE PO SCH ×3 (14:25→20:21)
[2019-04-16] MEDS: Acetaminophen 325 MG TABLET PO PRN (20:20)
[2019-04-16] MEDS: Magnesium Oxide 400 MG TABLET PO SCH (20:20)
[2019-04-16] MEDS: *HR* Heparin 5,000 UNIT/ML VIAL IVP PRN (22:35)
[2019-04-16 23:40] LABS: Bilirubin,Urine Negative (Negative); Blood,Urine Negative (Negative); Clarity,Urine Clear (Clear); Color,Urine Yellow (Yellow); Glucose,Urine (UA) >=1000 mg/dL (Normal); Ketones,Urine Negative (Negative); Leukocyte Esterase,Urine Negative (Negative); Nitrite,Urine Negative (Negative); Protein,Urine Negative (Neg-Trace); Specific Gravity,Urine 1.026 (1.010-1.025); Urobilinogen,Urine Normal (Normal)
[2019-04-17] MEDS: Isosorbide MONOnitrate (24 HR) 30 MG TAB.ER.24H PO SCH (09:03)
[2019-04-17] MEDS: hydroCHLOROthiazide 25 MG TABLET PO SCH (09:03)
[2019-04-17] MEDS: Gabapentin 300 MG CAPSULE PO SCH ×4 (09:03→21:04)
[2019-04-17] MEDS: Magnesium Oxide 400 MG TABLET PO SCH ×2 (09:03→21:04)
[2019-04-17] MEDS: Aspirin 81 MG TAB.CHEW PO SCH (09:04)
[2019-04-17] MEDS: Insulin LISPRO 300 UNITS/3 ML VIAL SQ SCH ×4 (09:04→21:05)
[2019-04-17] MEDS: Cholecalciferol (D-3) 1,000 UNIT (25MCG) TABLET PO SCH (09:04)
[2019-04-17] MEDS: Heparin 25,000 UNIT/250 ML D5W 25,000 UNIT/250 ML IV.SOLN IVC SCH (12:26)
[2019-04-17] MEDS: Acyclovir 200 MG CAPSULE PO SCH (21:04)
[2019-04-17] MEDS: Insulin DETEMIR 100 UNIT/ML X5UNITS SQ SCH (21:05)
[2019-04-18] MEDS: Magnesium Oxide 400 MG TABLET PO SCH ×2 (09:03→21:08)
[2019-04-18] MEDS: Gabapentin 300 MG CAPSULE PO SCH ×4 (09:03→21:08)
[2019-04-18] MEDS: Aspirin 81 MG TAB.CHEW PO SCH (09:03)
[2019-04-18] MEDS: Acyclovir 200 MG CAPSULE PO SCH ×2 (09:04→21:08)
[2019-04-18] MEDS: hydroCHLOROthiazide 25 MG TABLET PO SCH (09:04)
[2019-04-18] MEDS: Isosorbide MONOnitrate (24 HR) 30 MG TAB.ER.24H PO SCH (09:04)
[2019-04-18] MEDS: Cholecalciferol (D-3) 1,000 UNIT (25MCG) TABLET PO SCH (09:04)
[2019-04-18] MEDS: Insulin LISPRO 300 UNITS/3 ML VIAL SQ SCH ×4 (09:07→21:17)
[2019-04-18] MEDS: Heparin 25,000 UNIT/250 ML D5W 25,000 UNIT/250 ML IV.SOLN IVC SCH (09:34)
[2019-04-18] MEDS ORDERED: Nitroglycerin 0.4 MG TAB.SUBL SL PRN (10:45)
[2019-04-18] MEDS: *HR* Heparin 5,000 UNIT/ML VIAL IVP PRN (13:57)
[2019-04-18] MEDS: Insulin DETEMIR 100 UNIT/ML X5UNITS SQ SCH ×2 (21:19→21:59)
[2019-04-19] MEDS: Heparin 25,000 UNIT/250 ML D5W 25,000 UNIT/250 ML IV.SOLN IVC SCH ×2 (03:32→23:14)
[2019-04-19] MEDS: Aspirin 81 MG TAB.CHEW PO SCH (08:29)
[2019-04-19] MEDS: Cholecalciferol (D-3) 1,000 UNIT (25MCG) TABLET PO SCH (08:29)
[2019-04-19] MEDS: Gabapentin 300 MG CAPSULE PO SCH ×4 (08:29→20:24)
[2019-04-19] MEDS: Insulin LISPRO 300 UNITS/3 ML VIAL SQ SCH ×4 (08:29→20:25)
[2019-04-19] MEDS: Acyclovir 200 MG CAPSULE PO SCH ×2 (08:29→20:24)
[2019-04-19] MEDS: hydroCHLOROthiazide 25 MG TABLET PO SCH (08:29)
[2019-04-19] MEDS: Magnesium Oxide 400 MG TABLET PO SCH ×2 (08:29→20:23)
[2019-04-19] MEDS: Isosorbide MONOnitrate (24 HR) 30 MG TAB.ER.24H PO SCH (08:29)
[2019-04-19] MEDS: Insulin DETEMIR 100 UNIT/ML X5UNITS SQ SCH ×2 (08:37→20:25)
[2019-04-19] MEDS ORDERED: methylPREDNISolone 125 MG/2 ML VIAL IVP ONE (09:49)
[2019-04-19] MEDS ORDERED: Nitroglycerin 0.4 MG TAB.SUBL SL PRN (17:22)
[2019-04-19] MEDS ORDERED: Triamcinolone Acet 0.1% CRM 15 GM TUBE TP PRN (17:22)
[2019-04-19] MEDS: Sucralfate 1 GM TABLET PO SCH (21:13)
[2019-04-20 04:25] LABS: Basophils % 0.1 %; Hemoglobin 13.2 g/dL (12.9-16.9); Immature Granulocytes % 0.8 % (0-4); Lymphocytes # 3.1 K/mcL (0.6-4.6); Lymphocytes % 20.9 %; Mean Corpuscular HGB Conc 34.7 g/dL (31.6-35.5); Mean Corpuscular Hemoglobin 32.2 pg (28.0-33.3); Mean Corpuscular Volume 92.7 fL (83.0-100.0); Monocytes # 0.9 K/mcL (0.0-1.3); Monocytes % 5.8 %; Neutrophils # 10.6 K/mcL (1.6-8.9); Platelet Count 268 K/mcL (140-400); Red Cell Distribution Width 13.1 % (11.5-14.5); Segmented Neutrophils % 72.4 %; White Blood Count 14.7 K/mcL (4.3-11.1)
[2019-04-20 04:41] LABS: BUN/Creatinine Ratio 26 (6-26); Blood Urea Nitrogen 32 mg/dL (8-23); Calcium 9.5 mg/dL (8.6-10.3); Carbon Dioxide 19 mEq/L (23-29); Chloride 96 mEq/L (98-107); Glucose 279 mg/dL (70-105); Osmolality,Calculated 287 (280-300); Sodium 130 mEq/L (136-145); eGFR For African Americans > 60 (> 60); eGFR For Non-African Americans 57 (> 60)
[2019-04-20] MEDS: *HR* Heparin 5,000 UNIT/ML VIAL IVP PRN (05:10)
[2019-04-20] MEDS: Acyclovir 200 MG CAPSULE PO SCH ×2 (09:06→20:36)
[2019-04-20] MEDS: hydroCHLOROthiazide 25 MG TABLET PO SCH (09:07)
[2019-04-20] MEDS: Sucralfate 1 GM TABLET PO SCH ×2 (09:07→17:15)
[2019-04-20] MEDS: Magnesium Oxide 400 MG TABLET PO SCH ×2 (09:07→20:36)
[2019-04-20] MEDS: Gabapentin 300 MG CAPSULE PO SCH ×4 (09:08→20:36)
[2019-04-20] MEDS: Insulin LISPRO 300 UNITS/3 ML VIAL SQ SCH ×4 (09:08→20:40)
[2019-04-20] MEDS: Aspirin 81 MG TAB.CHEW PO SCH (09:08)
[2019-04-20] MEDS: Isosorbide MONOnitrate (24 HR) 30 MG TAB.ER.24H PO SCH (09:08)
[2019-04-20] MEDS: Insulin DETEMIR 100 UNIT/ML X5UNITS SQ SCH ×2 (09:08→20:39)
[2019-04-20] MEDS: Cholecalciferol (D-3) 1,000 UNIT (25MCG) TABLET PO SCH (09:16)
[2019-04-20] MEDS ORDERED: 0.9 % Sodium Chloride 1,000 ML IV ONE (14:35)
[2019-04-20] MEDS ORDERED: 0.9 % Sodium Chloride 1,000 ML ONE (14:35)
[2019-04-20] MEDS: Heparin 25,000 UNIT/250 ML D5W 25,000 UNIT/250 ML IV.SOLN IVC SCH (17:49)
[2019-04-20] MEDS: Acetaminophen 325 MG TABLET PO PRN (17:57)
[2019-04-20] MEDS: Chlorhexidine Rinse 15 ML MOUTHWASH MM SCH (20:37)
[2019-04-21] MEDS ORDERED: Heparin 15,000 UNIT in 0.9 % Sodium Chloride 500 ML IV ONE (06:00)
[2019-04-21] MEDS ORDERED: Norepinephrine 4 MG in 0.9 % Sodium Chloride 250 ML IVC PRN (06:00)
[2019-04-21] MEDS ORDERED: Dextrose 50 % in Water (Vial) 30 ML, Sodium Bicarbonate 20 MEQ, Potassium Chloride 15 M... TH ONE (06:00)
[2019-04-21] MEDS ORDERED: Dextrose 50 % in Water (Vial) 30 ML, Sodium Bicarbonate 20 MEQ, Lidocaine 1% 5 ML, Insu... TH ONE ×3 (06:00)
[2019-04-21] MEDS ORDERED: Insulin Human Regular 100 UNIT in 0.9 % Sodium Chloride 100 ML IV PRN (06:00)
[2019-04-21] MEDS: Chlorhexidine Rinse 15 ML MOUTHWASH MM SCH ×2 (06:40→19:58)
[2019-04-21] MEDS ORDERED: CeFAZolin Syr 2,000MG/20 ML 2,000 MG/20 ML SYRINGE IVPB ONE (07:00)
[2019-04-21 07:11] LABS: Basophils # 0.1 K/mcL (0.0-0.2); Basophils % 0.6 %; Eosinophils # 0.3 K/mcL (0.0-0.6); Eosinophils % 2.7 %; Hematocrit 38.7 % (37.5-50.1); Hemoglobin 12.7 g/dL (12.9-16.9); Immature Granulocytes % 0.4 % (0-4); Lymphocytes # 4.3 K/mcL (0.6-4.6); Lymphocytes % 35.3 %; Mean Corpuscular HGB Conc 32.8 g/dL (31.6-35.5); Mean Corpuscular Hemoglobin 32.1 pg (28.0-33.3); Mean Corpuscular Volume 97.7 fL (83.0-100.0); Mean Platelet Volume 10.8 fL (9.4-12.4); Monocytes # 0.9 K/mcL (0.0-1.3); Monocytes % 7.1 %; Neutrophils # 6.6 K/mcL (1.6-8.9); Platelet Count 273 K/mcL (140-400); Red Blood Count 3.96 M/mcL (4.19-5.50); Red Cell Distribution Width 13.5 % (11.5-14.5); Segmented Neutrophils % 53.9 %; White Blood Count 12.2 K/mcL (4.3-11.1)
[2019-04-21] MEDS ORDERED: Verapamil 5 MG/2 ML VIAL ONE ×2 (07:19)
[2019-04-21] MEDS ORDERED: *HR* Heparin 10,000 UNIT/10 ML VIAL IV ONE (07:33)
[2019-04-21] MEDS ORDERED: Tranexamic Acid 1,000 MG/10 ML VIAL IVP ONE (07:33)
[2019-04-21] MEDS ORDERED: Mannitol 25% vial 12.5 GM/50 ML VIAL IVP ONE (07:33)
[2019-04-21] MEDS ORDERED: *HR* Phenylephrine 10 MG/ML VIAL IVC ONE (07:33)
[2019-04-21] MEDS ORDERED: *HR* Magnesium Sulfate 2 GM/50 ML PIGGYBACK IVPB ONE (07:33)
[2019-04-21] MEDS ORDERED: Albumin Human 25% 25 GM/100 ML IV.SOLN IV ONE (07:33)
[2019-04-21] MEDS ORDERED: Lidocaine 2% Syringe 100 MG/5 ML IV ONE (07:33)
[2019-04-21 07:34] LABS: Calcium 9.3 mg/dL (8.6-10.3); Potassium 3.7 mEq/L (3.5-5.1)
[2019-04-21 08:00] LABS: ABG Base Excess -2 mEq/L (-2 to 3); ABG Chloride 102 mEq/L (98-107); ABG Glucose 227 mg/dL (60-95); ABG HCO3 26 mEq/L (21-27); ABG Ionized Calcium 1.12 mmol/L (1.15-1.35); ABG Oxygen Saturation 100 % (95-98); ABG PCO2 55 mmHg (35-45); ABG PH 7.28 pH Units (7.32-7.45); ABG PO2 442 mmHg (85-104); ABG TCO2 28 mEq/L (20-26)
[2019-04-21] MEDS ORDERED: 0.9 % Sodium Chloride 4,000 ML ONE (08:58)
[2019-04-21] MEDS ORDERED: 0.9 % Sodium Chloride 500 ML ONE (08:58)
[2019-04-21] MEDS ORDERED: Albumin Human 5% 50.0 GM/1,000 ML VIAL ONE (08:59)
[2019-04-21 09:19] LABS: ABG Base Excess -5 mEq/L (-2 to 3); ABG Chloride 104 mEq/L (98-107); ABG Glucose 237 mg/dL (60-95); ABG HCO3 22 mEq/L (21-27); ABG Ionized Calcium 1.04 mmol/L (1.15-1.35); ABG Oxygen Saturation 100 % (95-98); ABG PCO2 45 mmHg (35-45); ABG PH 7.29 pH Units (7.32-7.45); ABG PO2 191 mmHg (85-104); ABG TCO2 23 mEq/L (20-26)
[2019-04-21 09:47] LABS: ABG Base Excess -3 mEq/L (-2 to 3); ABG Chloride 97 mEq/L (98-107); ABG Glucose 299 mg/dL (60-95); ABG HCO3 23 mEq/L (21-27); ABG Ionized Calcium 0.99 mmol/L (1.15-1.35); ABG Oxygen Saturation 100 % (95-98); ABG PCO2 41 mmHg (35-45); ABG PH 7.36 pH Units (7.32-7.45); ABG PO2 458 mmHg (85-104); ABG TCO2 24 mEq/L (20-26)
[2019-04-21 10:09] LABS: ABG Base Excess -2 mEq/L (-2 to 3); ABG Chloride 98 mEq/L (98-107); ABG Glucose 265 mg/dL (60-95); ABG HCO3 23 mEq/L (21-27); ABG Ionized Calcium 1.08 mmol/L (1.15-1.35); ABG Oxygen Saturation 100 % (95-98); ABG PCO2 38 mmHg (35-45); ABG PH 7.39 pH Units (7.32-7.45); ABG PO2 427 mmHg (85-104); ABG TCO2 24 mEq/L (20-26)
[2019-04-21 10:28] LABS: ABG Base Excess -2 mEq/L (-2 to 3); ABG Chloride 99 mEq/L (98-107); ABG Glucose 252 mg/dL (60-95); ABG HCO3 24 mEq/L (21-27); ABG Oxygen Saturation 100 % (95-98); ABG PCO2 42 mmHg (35-45); ABG PH 7.36 pH Units (7.32-7.45); ABG PO2 386 mmHg (85-104); ABG TCO2 25 mEq/L (20-26)
[2019-04-21] MEDS ORDERED: EPINEPHrine 1 MG in D5% in Water 250 ML IVC SCH (11:00)
[2019-04-21 11:11] LABS: ABG Base Excess -5 mEq/L (-2 to 3); ABG Chloride 103 mEq/L (98-107); ABG Glucose 217 mg/dL (60-95); ABG HCO3 23 mEq/L (21-27); ABG Ionized Calcium 1.21 mmol/L (1.15-1.35); ABG Oxygen Saturation 100 % (95-98); ABG PCO2 56 mmHg (35-45); ABG PH 7.23 pH Units (7.32-7.45); ABG PO2 309 mmHg (85-104); ABG TCO2 25 mEq/L (20-26)
[2019-04-21] MEDS ORDERED: Ondansetron 4 MG/2 ML VIAL IVP PRN (11:49)
[2019-04-21] MEDS ORDERED: Insulin Regular, Human 100 UNIT/ML IV PRN (11:49)
[2019-04-21] MEDS ORDERED: Potassium Chloride 40 MEQ/200 ML BAG IVPB PRN (11:49)
[2019-04-21] MEDS ORDERED: *HR* Promethazine 25 MG/ML VIAL IVP PRN (11:49)
[2019-04-21] MEDS ORDERED: *HR* Dextrose 50 % in Water (Syg) 50 ML SYRINGE IVP PRN (11:49)
[2019-04-21 12:00] LABS: ABG Base Excess -2 mEq/L (-2 to 3); ABG HCO3 25 mEq/L (21-27); ABG Oxygen Saturation 89 % (95-98); ABG PCO2 56 mmHg (35-45); ABG PH 7.26 pH Units (7.32-7.45); ABG PO2 67 mmHg (85-104); ABG TCO2 27 mEq/L (20-26); Blood Gas Modality ASSIST CONTROL; Blood Gas VT 600 cc
[2019-04-21 12:07] LABS: Basophils # 0.1 K/mcL (0.0-0.2); Basophils % 0.4 %; Eosinophils # 0.3 K/mcL (0.0-0.6); Eosinophils % 2.2 %; Hematocrit 31.3 % (37.5-50.1); Immature Granulocytes % 0.9 % (0-4); Lymphocytes # 2.2 K/mcL (0.6-4.6); Lymphocytes % 15.4 %; Mean Corpuscular HGB Conc 34.8 g/dL (31.6-35.5); Mean Corpuscular Hemoglobin 32.8 pg (28.0-33.3); Mean Corpuscular Volume 94.3 fL (83.0-100.0); Mean Platelet Volume 10.4 fL (9.4-12.4); Monocytes # 1.2 K/mcL (0.0-1.3); Monocytes % 8.2 %; Neutrophils # 10.3 K/mcL (1.6-8.9); Platelet Count 173 K/mcL (140-400); Red Blood Count 3.32 M/mcL (4.19-5.50); Red Cell Distribution Width 13.9 % (11.5-14.5); Segmented Neutrophils % 72.9 %
[2019-04-21 12:09] LABS: Hemoglobin 10.9 g/dL (12.9-16.9)
[2019-04-21 12:13] LABS: White Blood Count 14.1 K/mcL (4.3-11.1)
[2019-04-21 12:14] LABS: INR 1.2; Prothrombin Time 13.1 Seconds (9.4-12.1)
[2019-04-21 12:17] LABS: Activated Partial Thrombo Time 25.2 Seconds (26.0-36.0)
[2019-04-21 12:23] LABS: BUN/Creatinine Ratio 30 (6-26); Blood Urea Nitrogen 35 mg/dL (8-23); Calcium 7.4 mg/dL (8.6-10.3); Carbon Dioxide 22 mEq/L (23-29); Chloride 109 mEq/L (98-107); Glucose 203 mg/dL (70-105); Magnesium 1.9 mg/dL (1.6-2.6); Osmolality,Calculated 312 (280-300); Potassium 3.3 mEq/L (3.5-5.1); Sodium 144 mEq/L (136-145); eGFR For African Americans > 60 (> 60); eGFR For Non-African Americans > 60 (> 60)
[2019-04-21 13:05] LABS: ABG Base Excess -1 mEq/L (-2 to 3); ABG HCO3 25 mEq/L (21-27); ABG Oxygen Saturation 98 % (95-98); ABG PCO2 46 mmHg (35-45); ABG PH 7.34 pH Units (7.32-7.45); ABG PO2 117 mmHg (85-104); ABG TCO2 26 mEq/L (20-26); Blood Gas Modality VC; Blood Gas VT 750 cc
[2019-04-21] MEDS: Sucralfate 1 GM TABLET PO SCH ×2 (13:17→17:15)
[2019-04-21] MEDS: Insulin LISPRO 300 UNITS/3 ML VIAL SQ SCH ×4 (13:18→19:53)
[2019-04-21] MEDS: Aspirin 81 MG TAB.CHEW PO SCH (13:18)
[2019-04-21] MEDS: Isosorbide MONOnitrate (24 HR) 30 MG TAB.ER.24H PO SCH (13:18)
[2019-04-21] MEDS: Insulin DETEMIR 100 UNIT/ML X5UNITS SQ SCH ×2 (13:20→19:53)
[2019-04-21] MEDS: Magnesium Oxide 400 MG TABLET PO SCH ×2 (13:20→19:53)
[2019-04-21] MEDS: Gabapentin 300 MG CAPSULE PO SCH ×4 (13:21→19:57)
[2019-04-21] MEDS: Cholecalciferol (D-3) 1,000 UNIT (25MCG) TABLET PO SCH (13:21)
[2019-04-21] MEDS: 0.9 % Sodium Chloride 1,000 ML IVC SCH ×2 (13:28→23:13)
[2019-04-21] MEDS: *HR* FentaNYL (PF) 100 MCG/2 ML VIAL IVP PRN (13:53)
[2019-04-21] MEDS: *HR* OxyCODONE/APAP 5/325 TABLET PO PRN ×2 (14:00→19:57)
[2019-04-21 17:07] LABS: ABG Base Excess 2 mEq/L (-2 to 3); ABG HCO3 26 mEq/L (21-27); ABG Oxygen Saturation 99 % (95-98); ABG PCO2 41 mmHg (35-45); ABG PH 7.41 pH Units (7.32-7.45); ABG PO2 143 mmHg (85-104); ABG TCO2 28 mEq/L (20-26); Blood Gas Modality ASSIST CONTROL; Blood Gas VT 800 cc
[2019-04-21] MEDS: Famotidine 20 MG/2 ML VIAL IVP SCH (17:15)
[2019-04-21 17:48] LABS: Basophils % 0.3 %; Eosinophils # 0.1 K/mcL (0.0-0.6); Eosinophils % 1.4 %; Hematocrit 31.3 % (37.5-50.1); Hemoglobin 11.2 g/dL (12.9-16.9); Immature Granulocytes % 0.6 % (0-4); Lymphocytes # 1.4 K/mcL (0.6-4.6); Lymphocytes % 13.9 %; Mean Corpuscular HGB Conc 35.8 g/dL (31.6-35.5); Mean Corpuscular Volume 92.3 fL (83.0-100.0); Mean Platelet Volume 10.2 fL (9.4-12.4); Monocytes # 1.2 K/mcL (0.0-1.3); Monocytes % 11.2 %; Neutrophils # 7.4 K/mcL (1.6-8.9); Platelet Count 177 K/mcL (140-400); Red Blood Count 3.39 M/mcL (4.19-5.50); Red Cell Distribution Width 14.3 % (11.5-14.5); Segmented Neutrophils % 72.6 %; White Blood Count 10.2 K/mcL (4.3-11.1)
[2019-04-21 18:04] LABS: Alanine Aminotransferase 30 Units/L (7-52); Albumin 3.8 g/dL (3.5-5.7); Albumin/Globulin Ratio 1.7 (1.1-2.2); Alkaline Phosphatase 46 Units/L (34-104); Aspartate Amino Transferase 35 Units/L (13-39); BUN/Creatinine Ratio 25 (6-26); Bilirubin,Total 0.6 mg/dL (0.3-1.0); Blood Urea Nitrogen 30 mg/dL (8-23); Calcium 8.7 mg/dL (8.6-10.3); Carbon Dioxide 25 mEq/L (23-29); Chloride 107 mEq/L (98-107); Globulin 2.3 g/dL (2.4-3.5); Glucose 140 mg/dL (70-105); Osmolality,Calculated 296 (280-300); Potassium 3.7 mEq/L (3.5-5.1); Sodium 139 mEq/L (136-145); Total Protein 6.1 g/dL (6.4-8.9); eGFR For African Americans > 60 (> 60); eGFR For Non-African Americans > 60 (> 60)
[2019-04-21] MEDS: niCARdipine 20 MG in 0.9 % Sodium Chloride 192 ML IVC SCH (19:52)
[2019-04-21] MEDS: Norepinephrine 4 MG in 0.9 % Sodium Chloride 250 ML IVC SCH (19:52)
[2019-04-21] MEDS: Insulin Human Regular 100 UNIT in 0.9 % Sodium Chloride 100 ML IVC SCH (19:54)
[2019-04-21 20:19] LABS: ABG Base Excess 1 mEq/L (-2 to 3); ABG HCO3 25 mEq/L (21-27); ABG Oxygen Saturation 98 % (95-98); ABG PCO2 36 mmHg (35-45); ABG PH 7.45 pH Units (7.32-7.45); ABG PO2 93 mmHg (85-104); ABG TCO2 26 mEq/L (20-26); Blood Gas Modality ASSIST CONTROL; Blood Gas VT 800 cc
[2019-04-22] MEDS: Insulin LISPRO 300 UNITS/3 ML VIAL SQ SCH ×3 (00:12→15:52)
[2019-04-22 00:21] LABS: ABG Base Excess 2 mEq/L (-2 to 3); ABG HCO3 25 mEq/L (21-27); ABG Oxygen Saturation 96 % (95-98); ABG PCO2 36 mmHg (35-45); ABG PH 7.46 pH Units (7.32-7.45); ABG PO2 76 mmHg (85-104); ABG TCO2 27 mEq/L (20-26); Blood Gas Modality ASSIST CONTROL; Blood Gas VT 800 cc
[2019-04-22] MEDS: *HR* FentaNYL (PF) 100 MCG/2 ML VIAL IVP PRN ×3 (00:28→07:58)
[2019-04-22 04:20] LABS: Basophils % 0.2 %; Eosinophils # 0.1 K/mcL (0.0-0.6); Eosinophils % 0.5 %; Hematocrit 32.9 % (37.5-50.1); Hemoglobin 11.4 g/dL (12.9-16.9); Immature Granulocytes % 0.4 % (0-4); Lymphocytes % 19.5 %; Mean Corpuscular HGB Conc 34.7 g/dL (31.6-35.5); Mean Corpuscular Hemoglobin 32.3 pg (28.0-33.3); Mean Corpuscular Volume 93.2 fL (83.0-100.0); Mean Platelet Volume 10.3 fL (9.4-12.4); Monocytes # 1.1 K/mcL (0.0-1.3); Monocytes % 10.8 %; Neutrophils # 6.9 K/mcL (1.6-8.9); Platelet Count 156 K/mcL (140-400); Red Blood Count 3.53 M/mcL (4.19-5.50); Red Cell Distribution Width 14.6 % (11.5-14.5); Segmented Neutrophils % 68.6 %
[2019-04-22 04:21] LABS: ABG Base Excess 2 mEq/L (-2 to 3); ABG HCO3 26 mEq/L (21-27); ABG Oxygen Saturation 95 % (95-98); ABG PCO2 39 mmHg (35-45); ABG PH 7.44 pH Units (7.32-7.45); ABG PO2 73 mmHg (85-104); ABG TCO2 27 mEq/L (20-26); Blood Gas Modality CPAP/PS; Blood Gas Pressure Support 5 cm H2O
[2019-04-22 04:42] LABS: BUN/Creatinine Ratio 20 (6-26); Blood Urea Nitrogen 19 mg/dL (8-23); Carbon Dioxide 24 mEq/L (23-29); Chloride 104 mEq/L (98-107); Glucose 172 mg/dL (70-105); Magnesium 1.6 mg/dL (1.6-2.6); Osmolality,Calculated 294 (280-300); Potassium 3.8 mEq/L (3.5-5.1); Sodium 139 mEq/L (136-145); eGFR For African Americans > 60 (> 60); eGFR For Non-African Americans > 60 (> 60)
[2019-04-22] MEDS: Sucralfate 1 GM TABLET PO SCH (05:19)
[2019-04-22] MEDS: *HR* OxyCODONE/APAP 5/325 TABLET PO PRN ×3 (05:19→15:46)
[2019-04-22] MEDS: Famotidine 20 MG/2 ML VIAL IVP SCH ×2 (05:19→16:56)
[2019-04-22 05:30] LABS: ABG Base Excess 2 mEq/L (-2 to 3); ABG HCO3 26 mEq/L (21-27); ABG Oxygen Saturation 94 % (95-98); ABG PCO2 37 mmHg (35-45); ABG PH 7.45 pH Units (7.32-7.45); ABG PO2 69 mmHg (85-104); ABG TCO2 27 mEq/L (20-26)
[2019-04-22] MEDS: Chlorhexidine Rinse 15 ML MOUTHWASH MM SCH ×2 (07:58→20:39)
[2019-04-22] MEDS: 0.9 % Sodium Chloride 1,000 ML IVC SCH (08:03)
[2019-04-22] MEDS: Aspirin 81 MG TAB.CHEW PO SCH (08:03)
[2019-04-22] MEDS: Gabapentin 300 MG CAPSULE PO SCH ×4 (08:04→20:39)
[2019-04-22] MEDS: Isosorbide MONOnitrate (24 HR) 30 MG TAB.ER.24H PO SCH (08:04)
[2019-04-22] MEDS: Magnesium Oxide 400 MG TABLET PO SCH (08:04)
[2019-04-22] MEDS: Cholecalciferol (D-3) 1,000 UNIT (25MCG) TABLET PO SCH (08:05)
[2019-04-22] MEDS ORDERED: *HR* Dextrose 50 % in Water (Syg) 50 ML SYRINGE IVP PRN (08:42)
[2019-04-22] MEDS ORDERED: D5% in Water 1,000 ML IVC PRN (08:42)
[2019-04-22] MEDS ORDERED: Dextrose Gel 15 GM/37.5 ML TUBE PO PRN ×2 (08:42)
[2019-04-22] MEDS: Ketorolac 15 MG/ML VIAL IVP SCH ×3 (10:59→23:48)
[2019-04-22] MEDS: niCARdipine 20 MG in 0.9 % Sodium Chloride 192 ML IVC SCH (11:10)
[2019-04-22] MEDS: Insulin Human Regular 100 UNIT in 0.9 % Sodium Chloride 100 ML IVC SCH (11:18)
[2019-04-22] MEDS: Norepinephrine 4 MG in 0.9 % Sodium Chloride 250 ML IVC SCH (11:19)
[2019-04-22] MEDS: Acyclovir 200 MG CAPSULE PO SCH (15:01)
[2019-04-22] MEDS ORDERED: Insulin DETEMIR 100 UNIT/ML X5UNITS SQ SCH (21:00)
[2019-04-22] MEDS ORDERED: Insulin LISPRO 300 UNITS/3 ML VIAL SQ SCH (21:00)
[2019-04-23] MEDS: Famotidine 20 MG/2 ML VIAL IVP SCH (06:16)
[2019-04-23] MEDS: Ketorolac 15 MG/ML VIAL IVP SCH ×3 (06:16→16:53)
[2019-04-23] MEDS: Cholecalciferol (D-3) 1,000 UNIT (25MCG) TABLET PO SCH ×2 (08:20→08:44)
[2019-04-23] MEDS: Chlorhexidine Rinse 15 ML MOUTHWASH MM SCH ×3 (08:20→21:45)
[2019-04-23] MEDS: Gabapentin 300 MG CAPSULE PO SCH ×5 (08:21→21:46)
[2019-04-23] MEDS: Aspirin 81 MG TAB.CHEW PO SCH ×2 (08:22→08:43)
[2019-04-23] MEDS: Insulin LISPRO 300 UNITS/3 ML VIAL SQ SCH ×4 (08:24→21:47)
[2019-04-23] MEDS: niCARdipine 20 MG in 0.9 % Sodium Chloride 192 ML IVC SCH (08:25)
[2019-04-23] MEDS ORDERED: *HR* Dextrose 50 % in Water (Syg) 50 ML SYRINGE IVP PRN (08:37)
[2019-04-23] MEDS ORDERED: Dextrose Gel 15 GM/37.5 ML TUBE PO PRN ×2 (08:37)
[2019-04-23] MEDS ORDERED: Ondansetron 4 MG/2 ML VIAL IVP PRN (08:37)
[2019-04-23] MEDS ORDERED: Acetaminophen 325 MG TABLET PO PRN (08:37)
[2019-04-23] MEDS ORDERED: Nitroglycerin 0.4 MG TAB.SUBL SL PRN (08:37)
[2019-04-23] MEDS ORDERED: Triamcinolone Acet 0.1% CRM 15 GM TUBE TP PRN (08:37)
[2019-04-23] MEDS ORDERED: Naloxone 0.4 MG/ML INJ IVP PRN (08:37)
[2019-04-23] MEDS ORDERED: D5% in Water 1,000 ML IVC PRN (08:37)
[2019-04-23] MEDS: *HR* Heparin 5,000 UNIT/ML VIAL SQ SCH (16:53)
[2019-04-23] MEDS ORDERED: Insulin DETEMIR 100 UNIT/ML X5UNITS SQ SCH (21:00)
[2019-04-23] MEDS: *HR* OxyCODONE/APAP 5/325 TABLET PO PRN (22:15)
[2019-04-24] MEDS: Ketorolac 15 MG/ML VIAL IVP SCH ×4 (00:03→16:59)
[2019-04-24] MEDS: *HR* OxyCODONE/APAP 5/325 TABLET PO PRN ×3 (04:31→18:51)
[2019-04-24 05:27] LABS: BUN/Creatinine Ratio 23 (6-26); Blood Urea Nitrogen 24 mg/dL (8-23); Calcium 9.2 mg/dL (8.6-10.3); Carbon Dioxide 25 mEq/L (23-29); Chloride 102 mEq/L (98-107); Glucose 236 mg/dL (70-105); Osmolality,Calculated 300 (280-300); Potassium 3.9 mEq/L (3.5-5.1); Sodium 139 mEq/L (136-145); eGFR For African Americans > 60 (> 60); eGFR For Non-African Americans > 60 (> 60)
[2019-04-24] MEDS: *HR* Heparin 5,000 UNIT/ML VIAL SQ SCH ×2 (06:18→16:59)
[2019-04-24 07:21] LABS: Basophils # 0.1 K/mcL (0.0-0.2); Basophils % 0.5 %; Eosinophils # 0.4 K/mcL (0.0-0.6); Eosinophils % 4.1 %; Hematocrit 31.2 % (37.5-50.1); Hemoglobin 10.5 g/dL (12.9-16.9); Immature Granulocytes % 0.5 % (0-4); Lymphocytes # 2.6 K/mcL (0.6-4.6); Lymphocytes % 24.7 %; Mean Corpuscular HGB Conc 33.7 g/dL (31.6-35.5); Mean Corpuscular Hemoglobin 33.1 pg (28.0-33.3); Mean Corpuscular Volume 98.4 fL (83.0-100.0); Mean Platelet Volume 10.6 fL (9.4-12.4); Monocytes # 1.1 K/mcL (0.0-1.3); Monocytes % 10.1 %; Neutrophils # 6.4 K/mcL (1.6-8.9); Platelet Count 170 K/mcL (140-400); Red Blood Count 3.17 M/mcL (4.19-5.50); Red Cell Distribution Width 14.3 % (11.5-14.5); Segmented Neutrophils % 60.1 %; White Blood Count 10.7 K/mcL (4.3-11.1)
[2019-04-24] MEDS: Chlorhexidine Rinse 15 ML MOUTHWASH MM SCH ×2 (08:06→20:49)
[2019-04-24] MEDS: Gabapentin 300 MG CAPSULE PO SCH ×4 (08:07→20:50)
[2019-04-24] MEDS: Aspirin 81 MG TAB.CHEW PO SCH (08:07)
[2019-04-24] MEDS: Cholecalciferol (D-3) 1,000 UNIT (25MCG) TABLET PO SCH (08:08)
[2019-04-24] MEDS: Insulin LISPRO 300 UNITS/3 ML VIAL SQ SCH ×4 (08:18→20:50)
[2019-04-24] MEDS: hydroCHLOROthiazide 25 MG TABLET PO SCH (10:28)
[2019-04-24] MEDS: Insulin DETEMIR 100 UNIT/ML X5UNITS SQ SCH ×2 (10:28→20:50)
[2019-04-24] MEDS: *HR* Promethazine 25 MG/ML VIAL IVP PRN (20:49)
[2019-04-25] MEDS ORDERED: Menthol 9.1 MG LOZENGE PO PRN (00:04)
[2019-04-25] MEDS: *HR* OxyCODONE/APAP 5/325 TABLET PO PRN ×5 (00:11→20:51)
[2019-04-25] MEDS: Ketorolac 15 MG/ML VIAL IVP SCH ×3 (00:11→12:11)
[2019-04-25 03:27] LABS: Eosinophils % 6.1 %; Hematocrit 30.6 % (37.5-50.1); Hemoglobin 10.4 g/dL (12.9-16.9); Immature Granulocytes % 0.8 % (0-4); Lymphocytes % 27.3 %; Mean Corpuscular Hemoglobin 32.2 pg (28.0-33.3); Mean Corpuscular Volume 94.7 fL (83.0-100.0); Mean Platelet Volume 10.6 fL (9.4-12.4); Monocytes % 10.4 %; Platelet Count 227 K/mcL (140-400); Red Blood Count 3.23 M/mcL (4.19-5.50); Red Cell Distribution Width 14.3 % (11.5-14.5); Segmented Neutrophils % 54.8 %; White Blood Count 9.9 K/mcL (4.3-11.1)
[2019-04-25 03:28] LABS: Basophils # 0.1 K/mcL (0.0-0.2); Basophils % 0.6 %; Eosinophils # 0.6 K/mcL (0.0-0.6); Lymphocytes # 2.7 K/mcL (0.6-4.6); Neutrophils # 5.4 K/mcL (1.6-8.9)
[2019-04-25 03:43] LABS: BUN/Creatinine Ratio 25 (6-26); Blood Urea Nitrogen 25 mg/dL (8-23); Calcium 9.1 mg/dL (8.6-10.3); Carbon Dioxide 25 mEq/L (23-29); Chloride 103 mEq/L (98-107); Glucose 224 mg/dL (70-105); Osmolality,Calculated 293 (280-300); Potassium 4.2 mEq/L (3.5-5.1); Sodium 136 mEq/L (136-145); eGFR For African Americans > 60 (> 60); eGFR For Non-African Americans > 60 (> 60)
[2019-04-25] MEDS: *HR* Heparin 5,000 UNIT/ML VIAL SQ SCH ×2 (05:02→16:44)
[2019-04-25] MEDS: Cholecalciferol (D-3) 1,000 UNIT (25MCG) TABLET PO SCH (07:37)
[2019-04-25] MEDS: Chlorhexidine Rinse 15 ML MOUTHWASH MM SCH ×2 (07:37→19:37)
[2019-04-25] MEDS: hydroCHLOROthiazide 25 MG TABLET PO SCH (07:37)
[2019-04-25] MEDS: Gabapentin 300 MG CAPSULE PO SCH ×4 (07:38→19:37)
[2019-04-25] MEDS: Aspirin 81 MG TAB.CHEW PO SCH (07:38)
[2019-04-25] MEDS: Insulin LISPRO 300 UNITS/3 ML VIAL SQ SCH ×4 (07:38→19:49)
[2019-04-25] MEDS: Insulin DETEMIR 100 UNIT/ML X5UNITS SQ SCH ×2 (07:41→20:52)
[2019-04-25] MEDS: *HR* Promethazine 25 MG/ML VIAL IVP PRN (19:38)
[2019-04-26] MEDS: *HR* OxyCODONE/APAP 5/325 TABLET PO PRN ×6 (00:50→21:19)
[2019-04-26] MEDS: *HR* Heparin 5,000 UNIT/ML VIAL SQ SCH ×2 (04:49→16:53)
[2019-04-26] MEDS: Cholecalciferol (D-3) 1,000 UNIT (25MCG) TABLET PO SCH (07:27)
[2019-04-26] MEDS: Insulin LISPRO 300 UNITS/3 ML VIAL SQ SCH ×4 (07:27→21:20)
[2019-04-26] MEDS: Chlorhexidine Rinse 15 ML MOUTHWASH MM SCH ×2 (07:27→21:18)
[2019-04-26] MEDS: Insulin DETEMIR 100 UNIT/ML X5UNITS SQ SCH ×2 (07:27→21:19)
[2019-04-26] MEDS: hydroCHLOROthiazide 25 MG TABLET PO SCH (07:28)
[2019-04-26] MEDS: Aspirin 81 MG TAB.CHEW PO SCH (07:28)
[2019-04-26] MEDS: Gabapentin 300 MG CAPSULE PO SCH ×4 (07:28→21:18)
[2019-04-26] MEDS: *HR* Promethazine 25 MG/ML VIAL IVP PRN (08:41)
[2019-04-27] MEDS: *HR* OxyCODONE/APAP 5/325 TABLET PO PRN ×3 (01:39→14:14)
[2019-04-27] MEDS: *HR* Heparin 5,000 UNIT/ML VIAL SQ SCH (05:45)
[2019-04-27] MEDS: Insulin DETEMIR 100 UNIT/ML X5UNITS SQ SCH (07:33)
[2019-04-27] MEDS: Chlorhexidine Rinse 15 ML MOUTHWASH MM SCH (07:33)
[2019-04-27] MEDS: Insulin LISPRO 300 UNITS/3 ML VIAL SQ SCH ×2 (07:33→11:23)
[2019-04-27] MEDS: Cholecalciferol (D-3) 1,000 UNIT (25MCG) TABLET PO SCH (07:34)
[2019-04-27] MEDS: Aspirin 81 MG TAB.CHEW PO SCH (07:34)
[2019-04-27] MEDS: Gabapentin 300 MG CAPSULE PO SCH ×2 (07:34→12:37)
[2019-04-27] MEDS: hydroCHLOROthiazide 25 MG TABLET PO SCH (07:34)
[2019-04-27 11:22] VITALS: BP 131/74
== END 2019-04-27 15:49 | disposition home or self-care (01) | DRG 234 ==
LOC: EMEROOARM 01:38 → CDU 01:38 → SUATTDRO 03:08 → CDU 04:58 → 3BNU 19:18 → SUATTDRO 04-16 08:27 → 3BNU 04-16 20:37 → ICNU 04-21 07:33 → 2NNU 04-23 10:54
PROVIDERS: ADMIT Family Medicine; ATTEND Internal Medicine